=== PATIENT | male | born 1985 | race Caucasian/White ===

== ENCOUNTER 2017-12-03 15:08 | Inpatient (IN) | payer OTHER, MEDICAID ==
[~2017-12-03] VITALS: Ht 170.2 cm; Wt 82.6 kg
[2017-12-03 15:30] VITALS: BP 118/72; PULSE 82; RESP 16; TEMP 98
--- NOTE | 2017-12-03 16:51 | PD ---
HPI Chief Complaint: Psychiatric Symptoms Time Seen by Provider: 16:12 Travel History International Travel<30 days: No Contact w/Intl Traveler<30days: No History of Present Illness HPI 32-year-old male brought in under the Castillo act with history of PTSD, after threatening to kill himself with a loaded gun that was in his home. His called the police came, and the patient gave up his gun and himself voluntarily under the Castillo act for suicidal ideation. Patient admits to recent binge drinking over the past few days. He denies any acute medical problems currently. He has no known drug allergies. [facility] Social History Alcohol Use: Yes Tobacco Use: Yes Substance Use: No Allergies-Medications (Allergen,Severity, Reaction): Coded Allergies: No Known Allergies (Unverified , 12/03/17) Reported Meds & Prescriptions Reported Meds & Active Scripts Active No Active Prescriptions or Reported Medications Review of Systems Except as stated in HPI: all other systems reviewed are Neg General / Constitutional: No: Fever Eyes: No: Visual changes HENT: No: Headaches Cardiovascular: No: Chest Pain or Discomfort Respiratory: No: Shortness of Breath Gastrointestinal: No: Abdominal Pain Genitourinary: No: Dysuria Musculoskeletal: No: Pain Skin: No Rash Neurologic: No: Weakness Psychiatric: Positive: Suicidal Ideations, No: Depression Endocrine: No: Polydipsia Hematologic/Lymphatic: No: Easy Bruising Physical Exam Narrative GENERAL: Patient appears in no obvious distress per SKIN: Warm and dry. Normal color. Normal turgor. No obvious signs of trauma HEAD: Atraumatic. Normocephalic. Nontender. EYES: Pupils equal and round. No scleral icterus. No injection or drainage. ENT: No nasal bleeding or discharge. Mucous membranes pink and moist. Pharynx is clear. Airways patent. NECK: Trachea midline. Supple and nontender. CARDIOVASCULAR: Regular rate and rhythm. RESPIRATORY: No accessory muscle use. Clear to auscultation. Breath sounds equal bilaterally. GASTROINTESTINAL: Abdomen soft, non-tender, nondistended. Hepatic and splenic margins not palpable. MUSCULOSKELETAL: Extremities without clubbing, cyanosis, or edema. No obvious deformities. NEUROLOGICAL: Awake and alert. No obvious cranial nerve deficits. Motor grossly within normal limits. Five out of 5 muscle strength in the arms and legs. Normal speech. PSYCHIATRIC: Appropriate mood and affect; insight and judgment normal. Data Data Last Documented VS Vital Signs Date Time Temp Pulse Resp B/P (MAP) Pulse Ox O2 Delivery O2 Flow Rate FiO2 12/03/17 15:30 98.0 82 16 118/72 (87) Orders Orders Complete Blood Count With Diff (12/03/17 16:12) Comprehensive Metabolic Panel (12/03/17 16:12) Thyroid Stimulating Hormone (12/03/17 16:12) Psych Screen (12/03/17 16:12) Drug Screen, Random Urine (12/03/17 16:12) Diet Regular Basic (12/03/17 Dinner) Labs Laboratory Tests Test 12/03/17 17:00 White Blood Count 8.0 TH/MM3 Red Blood Count 4.95 MIL/MM3 Hemoglobin 15.0 GM/DL Hematocrit 44.1 % Mean Corpuscular Volume 89.2 FL Mean Corpuscular Hemoglobin 30.4 PG Mean Corpuscular Hemoglobin Concent 34.1 % Red Cell Distribution Width 12.8 % Platelet Count 262 TH/MM3 Mean Platelet Volume 8.3 FL Neutrophils (%) (Auto) 65.0 % Lymphocytes (%) (Auto) 26.9 % Monocytes (%) (Auto) 6.5 % Eosinophils (%) (Auto) 1.0 % Basophils (%) (Auto) 0.6 % Neutrophils # (Auto) 5.2 TH/MM3 Lymphocytes # (Auto) 2.2 TH/MM3 Monocytes # (Auto) 0.5 TH/MM3 Eosinophils # (Auto) 0.1 TH/MM3 Basophils # (Auto) 0.0 TH/MM3 CBC Comment DIFF FINAL Differential Comment Blood Urea Nitrogen 11 MG/DL Creatinine 1.12 MG/DL Random Glucose 79 MG/DL Total Protein 7.8 GM/DL Albumin 4.5 GM/DL Calcium Level 9.3 MG/DL Alkaline Phosphatase 93 U/L Aspartate Amino Transf (AST/SGOT) 18 U/L Alanine Aminotransferase (ALT/SGPT) 32 U/L Total Bilirubin 0.4 MG/DL Sodium Level 142 MEQ/L Potassium Level 3.6 MEQ/L Chloride Level 106 MEQ/L Carbon Dioxide Level 25.7 MEQ/L Anion Gap 10 MEQ/L Estimat Glomerular Filtration Rate 76 ML/MIN Thyroid Stimulating Hormone 3rd Gen 1.570 uIU/ML Urine Opiates Screen NEG Urine Barbiturates Screen NEG Urine Amphetamines Screen NEG Urine Benzodiazepines Screen NEG Urine Cocaine Screen NEG Urine Cannabinoids Screen NEG MDM Medical Decision Making Medical Screen Exam Complete: Yes Emergency Medical Condition: Yes Differential Diagnosis Castillo act. Suicidal ideation. History of PTSD Narrative Course Patient appears medically stable at time of exam. Psychiatric labs ordered per protocol. Psych screen is ordered. Patient is medically clear for psychiatric evaluation. Scripts No Active Prescriptions or Reported Meds Condition: Stable Jeremy Rubin Dec 03, 2017 16:51
[2017-12-03 17:54] LABS: AUTOMATED NEUTROPHIL # 5.2 TH/MM3 (1.8-7.7); BASOPHIL % 0.6 % (0.0-2.0); EOSINOPHIL # 0.1 TH/MM3 (0-0.4); HEMATOCRIT 44.1 % (39.0-51.0); LYMPH % 26.9 % (9.0-44.0); LYMPHOCYTE # 2.2 TH/MM3 (1.0-4.8); MEAN CELL VOLUME 89.2 FL (80.0-100.0); MEAN CORPUSCULAR HEMOGLOBIN 30.4 PG (27.0-34.0); MEAN CORPUSCULAR HGB CONC 34.1 % (32.0-36.0); MEAN PLATELET VOLUME 8.3 FL (7.0-11.0); MONO % 6.5 % (0.0-8.0); MONOCYTE # 0.5 TH/MM3 (0-0.9); PLATELET COUNT 262 TH/MM3 (150-450); RED BLOOD COUNT 4.95 MIL/MM3 (4.50-5.90); RED CELL DISTRIBUTION WIDTH 12.8 % (11.6-17.2)
[2017-12-03 18:16] LABS: ALBUMIN 4.5 GM/DL (3.4-5.0); AST (GOT) 18 U/L (15-37); BICARBONATE 25.7 MEQ/L (21.0-32.0); BLOOD UREA NITROGEN 11 MG/DL (7-18); CALCIUM 9.3 MG/DL (8.5-10.1); CHLORIDE 106 MEQ/L (98-107); CREATININE 1.12 MG/DL (0.60-1.30); GLOMERULAR FILTRATION RATE 76 ML/MIN (>89); GLUCOSE,RANDOM 79 MG/DL (74-106); SODIUM (NA) 142 MEQ/L (136-145)
[2017-12-03 18:29] LABS: ALKALINE PHOSPHATASE 93 U/L (45-117); ALT (GPT) 32 U/L (12-78); TOTAL BILIRUBIN ADULT 0.4 MG/DL (0.2-1.0); TOTAL PROTEIN 7.8 GM/DL (6.4-8.2)
[2017-12-03 19:06] VITALS: BP 130/61; PULSE 68; RESP 18; O2SAT 100
[2017-12-03 19:07] VITALS: BP 140/63; PULSE 86; RESP 18; O2SAT 98
[2017-12-04 02:31] VITALS: BP 132/66; PULSE 75; RESP 17; O2SAT 99
[2017-12-04 10:00] VITALS: BP 128/72; PULSE 64; RESP 20
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
[2017-12-04] MEDS ORDERED: ACETAMINOPHEN 325 MG TAB PO PRN (14:00)
[2017-12-04] MEDS ORDERED: ALUMINUM/MAGNESIUM/SIMETH 30 ML CUP PO PRN (14:00)
[2017-12-04] MEDS ORDERED: MAGNESIUM HYDROXIDE SUSP 30 ML CUP PO PRN (14:00)
[2017-12-04 14:31] VITALS: BP 130/76; PULSE 76; RESP 16; TEMP 98.2; O2SAT 76
--- NOTE | 2017-12-04 14:54 | PD ---
History of Present Illness Chief Complaint: Psychiatric Symptoms Time Seen by Provider: 13:15 Travel History International Travel<30 Days: No Contact w/Intl Traveler<30days: No Known affected area: No Legal Status Legal Status: Castillo Act Castillo Act Signed By: Carla Torrez History of Present Illness: History of Present Illness HPI 32-year-old male brought in under the Castillo act with history of PTSD, after threatening to kill himself with a loaded gun that was in his home. His called the police came, and the patient gave up his gun and himself voluntarily under the Castillo act for suicidal ideation. Patient admits to recent binge drinking over the past few days. He denies any acute medical problems currently. He has no known drug allergies. Telephone call to his , Sid with his verbal authorization to obtain collateral at [phone]. [facility] Past Medical History Diminished Hearing: No Medical other: [facility] ([facility]) Immunizations Current: Yes Past Surgical History Other Surgery: Yes (LEFT KNEE SURGERY) Psychiatric History Psychiatric History Hx Psychiatric Treatment: DENIES History of Inpatient Treatment: No Social History Hx Alcohol Use: Yes Hx Tobacco Use: Yes Hx Substance Use: No Substance Use Type: Alcohol Other Substances Used: DRINKS SOCIALLY Hx of Substance Use Treatment: No Allergies-Medications (Allergen,Severity, Reaction): Coded Allergies: No Known Allergies (Unverified , 12/03/17) Reported Meds & Prescriptions Reported Meds & Active Scripts Active No Active Prescriptions or Reported Medications MDM Orders Orders Complete Blood Count With Diff (12/03/17 16:12) Comprehensive Metabolic Panel (12/03/17 16:12) Thyroid Stimulating Hormone (12/03/17 16:12) Psych Screen (12/03/17 16:12) Drug Screen, Random Urine (12/03/17 16:12) Diet Regular Basic (12/03/17 Dinner) Diet Regular Basic (12/04/17 Breakfast) Diet Regular Basic (12/04/17 Lunch) Results Vital Signs Date Time Temp Pulse Resp B/P (MAP) Pulse Ox O2 Delivery O2 Flow Rate FiO2 12/04/17 10:00 64 20 128/72 (90) Room Air 12/04/17 02:31 75 17 132/66 (88) 99 Room Air 12/03/17 19:07 () 12/03/17 19:06 68 18 130/61 (84) 100 Room Air 12/03/17 15:30 98.0 82 16 118/72 (87) Laboratory Tests Test 12/03/17 17:00 White Blood Count 8.0 Red Blood Count 4.95 Hemoglobin 15.0 Hematocrit 44.1 Mean Corpuscular Volume 89.2 Mean Corpuscular Hemoglobin 30.4 Mean Corpuscular Hemoglobin Concent 34.1 Red Cell Distribution Width 12.8 Platelet Count 262 Mean Platelet Volume 8.3 Neutrophils (%) (Auto) 65.0 Lymphocytes (%) (Auto) 26.9 Monocytes (%) (Auto) 6.5 Eosinophils (%) (Auto) 1.0 Basophils (%) (Auto) 0.6 Neutrophils # (Auto) 5.2 Lymphocytes # (Auto) 2.2 Monocytes # (Auto) 0.5 Eosinophils # (Auto) 0.1 Basophils # (Auto) 0.0 CBC Comment DIFF FINAL Differential Comment Blood Urea Nitrogen 11 Creatinine 1.12 Random Glucose 79 Total Protein 7.8 Albumin 4.5 Calcium Level 9.3 Alkaline Phosphatase 93 Aspartate Amino Transf (AST/SGOT) 18 Alanine Aminotransferase (ALT/SGPT) 32 Total Bilirubin 0.4 Sodium Level 142 Potassium Level 3.6 Chloride Level 106 Carbon Dioxide Level 25.7 Anion Gap 10 Estimat Glomerular Filtration Rate 76 Thyroid Stimulating Hormone 3rd Gen 1.570 Urine Opiates Screen NEG Urine Barbiturates Screen NEG Urine Amphetamines Screen NEG Urine Benzodiazepines Screen NEG Urine Cocaine Screen NEG Urine Cannabinoids Screen NEG Prescriptions No Active Prescriptions or Reported Meds Condition: Stable Tonya Burrows Hugo GUZMAN Dec 04, 2017 14:54
[2017-12-04 18:21] VITALS: BP 127/75; PULSE 71; RESP 18; TEMP 98.4; O2SAT 98
[2017-12-05 05:46] VITALS: BP 112/73; PULSE 71; RESP 18; TEMP 97.6; O2SAT 98
[2017-12-05] MEDS: NICOTINE 21 MG/24 HR PATCH T-DERMAL SCH (09:00)
[2017-12-05 11:41] LABS: BICARBONATE 26.3 MEQ/L (21.0-32.0); BLOOD UREA NITROGEN 13 MG/DL (7-18); CALCIUM 9.2 MG/DL (8.5-10.1); CHLORIDE 107 MEQ/L (98-107); GLOMERULAR FILTRATION RATE 87 ML/MIN (>89); GLUCOSE,RANDOM 84 MG/DL (74-106); SODIUM (NA) 141 MEQ/L (136-145)
[2017-12-05 11:43] LABS: CHOLESTEROL 195 MG/DL (120-200); TRIGLYCERIDES 220 MG/DL (42-150)
[2017-12-05 11:44] LABS: CHOLESTEROL/ HDL RATIO 7.86 RATIO; HDL CHOLESTEROL 24.8 MG/DL (40.0-60.0); LDL CHOLESTEROL 126 MG/DL (0-99)
[2017-12-05] MEDS ORDERED: hydrOXYzine HCL 50 MG TAB PO PRN (12:15)
--- NOTE | 2017-12-05 12:36 | HHI.HP ---
Provisional Diagnosis Admission Date Dec 04, 2017 at 14:02 [place] I. posttraumatic stress disorder f 43.10 Certification of Person's Competence To Provide Express and Informed Consent I have personally examined Malcolm Zayas , a person being served at [facility] [[email or web address]] on, Dec 05, 2017 12:19. Express and informed consent means consent voluntarily given in writing, by a competent person, after sufficient explanation and disclosure of the subject matter involved to enable the person to make a knowing and willful decision without any element of force, fraud, deceit, duress, or other form of constraint or coercion. This person is 18 years of age or older, is not now known to be incompetent to consent to treatment with a guardian advocate, and does not have a health care surrogate or proxy currently making medical treatment decisions. I have found this person to be one of the following: [] Competent to provide express and informed consent, as defined above, for voluntary admission to this facility and is competent to provide express and informed consent for treatment. He/she has the consistent capacity to make well reasoned, willful, and knowing decisions concerning his or her medical or mental health treatment. The person fully and consistently understands the purpose of the admission for examination/placement and is fully capable of personally exercising all rights assured under [place] [] Incompetent to provide express and informed consent to voluntary admission, and this is incompetent to provide express and informed consent to treatment. The person must be transferred to involuntary status and a petition for a guardian advocate filed with the Circuit Court. [xxx] Refusing to provide express and informed consent to voluntary admission but is competent to provide express and informed consent for treatment. The person must be discharged or transferred to involuntary status. Form shall be completed within 24 hours of a person's arrival at the receiving facility and filed in the clinical record of each person: 1. Admitted on a voluntary basis 2. Permitted to provide express and informed consent to his/her own treatment 3. Allowed to transfer from involuntary to voluntary status 4. Prior to permitting a person to consent to his or her own treatment after having been previously found incompetent to consent to treatment. History of Present Illness Capacity: Lacks Capacity (patient lacks capacity to sign for admission, patient has capacity to sign for medications) Psych Chief Complaint: PTSD with suicidal ideation and plan to shoot himself HPI is a 32-year-old white male comes here under [place] act by the [place] [employer] dated 12/03/17 at 3 PM the document reviewed and agreed with it stated subject had a loaded firearm and told his that he was thinking of harming himself subject had been drinking last few days subject is a and suffers from PTSD subject as harm himself in the past subject agreed to go seek assistance cooperatively done taken for safekeeping at [facility] patient seen screened in the ED urine toxicology negative it appears that no one alcohol level drawn. At the present time patient sitting quietly in his room counselor Amee present throughout session. Patient is alert oriented stockily built white male, both arm is heavily tattooed. 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 The acknowledges dreams nightmares flashbacks, but only a few eversion behaviors. Acknowledges increased depression over the past few weeks. He states his sleep is been somewhat disruptive. There is a.m. anergy, some decreased energy, his appetite is fair, he denies any voices with this. He denies any drug use but acknowledges some increased alcohol use but denies alcohol being any Of a persistent problem with him. He notices a decrease in his attention concentration, there is a decrease in his coping skills a marked increased irritability and anger. He has had at least one to 2 episodes of depression. There is documentation that patient called his on the phone told him not to come home not to bring her children home. Patient denies any prior psychiatric contact psychotropic medications or psychiatric hospitalization. He denies any physical or sexual abuse. Denies any mental health issues in his family of origin denies drug abuse or alcohol use family of origin. Patient states he is he has been for over 10 years has 4 children 12 years of age down to 2 years of age. He says he gets along well with his kids, but he has more recently been getting into frequent fairly intense arguments and fights with his . Attempted to call his ,may, at [phone] on a manipulative messages. We did discuss treatments. Patient is somewhat irritable related to his income loss will not going to work. However he realizes he needs to be on some medication. Will start patient on Zoloft 25 mg in the morning. Because of the PTSD and bad dreams will also place him on Zyprexa 10 mg at bedtime. Of interest patient stated that perhaps he would drive up to his parents home in [place] may be previous children with him, did acknowledge for did this he would just quit his job. He does meet Castillo criteria at this time thus I will do first opinion request second opinion by Carlene garcia to sign for his medication Review of Systems Constitutional: DENIES: Diaphoretic episodes, Fatigue, Fever, Weight gain, Weight loss, Chills, Dizziness, Change in appetite, Night Sweats Ears, nose, mouth, throat: DENIES: Tinnitus, Hearing loss, Vertigo, Nasal discharge, Oral lesions, Throat pain, Hoarseness, Ear Pain, Running Nose, Epistaxis, Sinus Pain, Toothache, Odynophagia Respiratory: DENIES: Apneas, Cough, Snoring, Wheezing, Hemoptysis, Sputum production, Shortness of breath Cardiovascular: DENIES: Chest pain, Palpitations, Syncope, Dyspnea on Exertion , PND, Lower Extremity Edema, Orthopnea, Claudication Gastrointestinal: DENIES: Abdominal pain, Black stools, Bloody stools, Constipation, Diarrhea, Nausea, Vomiting, Difficulty Swallowing, Anorexia Genitourinary: DENIES: Sexual dysfunction, Urinary frequency, Urinary incontinence, Urgency, Hematuria, Dysuria, Nocturia, Penile Discharge, Testicular Pain, Testicular Swelling Musculoskeletal: DENIES: Joint pain, Muscle aches, Stiffness, Joint Swelling, Back pain, Neck pain Integumentary: DENIES: Abnormal pigmentation, Nail changes, Pruritus, Rash Hematologic/lymphatic: DENIES: Bruising, Lymphadenopathy Immunologic/allergic: DENIES: Eczema, Urticaria Neurologic: DENIES: Abnormal gait, Headache, Localized weakness, Paresthesias, Seizures, Speech Problems, Tremor, Poor Balance Psychiatric: COMPLAINS OF: Anxiety, Depression, Hallucinations (flashbacks and nightmares), Agitation, Suicidal Ideation (patient walking around the home with a loaded 45 caliber pistol) Past Psych History Psychological trauma history Patient has seen combat [place] with the [employer] Violence risk - others (6 mos) Low Violence risk - self (6 mos) High Substance Abuse History Drugs/Alcohol past 12 months Patient said increase alcohol abuse past month or so Past Family Social History Coded Allergies: No Known Allergies (Unverified , 12/03/17) No Active Prescriptions or Reported Meds Current Medications Medications (Trade) Dose Ordered Sig/Michelle Route Start Time Stop Time Status Last Admin (Tylenol) 650 mg Q4H PRN PO 12/04/17 14:00 (Milk Of Magnesia Liq) 30 ml DAILY PRN PO 12/04/17 14:00 (Mag-Al Plus Susp Liq) 30 ml Q6H PRN PO 12/04/17 14:00 (Habitrol 21 Mg Patch.24 Hr) 1 patch DAILY T-DERMAL 12/05/17 09:00 Miscellaneous Information 1 HS T-DERMAL 12/05/17 21:00 Family Psych History Patient denies mental illness or addictions and family of origin Social History Patient lives with his of 12 years they have 4 children 12 years old 2 years Patient's Strengths (min. 2) Intervertebral labile access healthcare Physical Exam Patient medically cleared in ED exam reviewed and agreed with at the present time patient sitting quietly in his room is in no acute distress, is in no respiratory distress. No complaints of abdominal pain. Patient moving all 4 extremities without difficulty, no abnormal motor movements noted Vital Signs Vital Signs Date Time Temp Pulse Resp B/P (MAP) Pulse Ox O2 Delivery O2 Flow Rate FiO2 12/05/17 05:46 97.6 71 18 112/73 (86) 98 12/04/17 10:00 Room Air Lab Results Test 12/05/17 10:05 Blood Urea Nitrogen 13 MG/DL Creatinine 1.00 MG/DL Random Glucose 84 MG/DL Calcium Level 9.2 MG/DL Sodium Level 141 MEQ/L Potassium Level 4.1 MEQ/L Chloride Level 107 MEQ/L Carbon Dioxide Level 26.3 MEQ/L Anion Gap 8 MEQ/L Estimat Glomerular Filtration Rate 87 ML/MIN Triglycerides Level 220 MG/DL Cholesterol Level 195 MG/DL LDL Cholesterol 126 MG/DL HDL Cholesterol 24.8 MG/DL Cholesterol/HDL Ratio 7.86 RATIO Mental Status Examination Appearance: Appropriate (in hospital paper gowns) Consciousness: Alert Orientation: x4 Motor Activity: Normal gait Speech: Unremarkable Language: Adequate Fund of Knowledge: Adequate Attention and Concentration: Adequate Memory: Unremarkable Mood: Angry, Sad, Irritable Affect: Other (increase range and intensity) Thought Process & Associations: Intact, Logical, Goal directed Thought Content: Appropriate Hallucination Type: None Delusion Type: None Suicidal Ideation: No (denies today) Suicidal Plan: No Suicidal Intention: No Homicidal Ideation: No Homicidal Plan: No Homicidal Intention: No Insight: Poor Judgment: Impulsive Assessment & Plan Problem List: (1) Post traumatic stress disorder (PTSD) ICD Codes: F43.10 - Post-traumatic stress disorder, unspecified Status: Acute Assessment & Plan Estimated LOS 5-7: days patient remains depressed irritable angry and volatile. Patient does meet Castillo criteria I will do first opinion will ask for second opinion. I feel he has capacity to sign for medications. We'll continue to attempt to reach patient's for further information. We'll start patient on Zoloft 25 mg daily Zyprexa 10 mg at at bedtime. Hopeless be fairly short stay and return patient to [place] follow-up care through the [place] clinic here in [facility] Discharge Planning To be determined probable return home with family follow-up [place] clinic Request HC Surrog/Guard Advoc?: No Miguel Singh MD Dec 05, 2017 12:36
--- NOTE | 2017-12-05 13:08 | EKG ---
Date Performed: 12/05/2017 Time Performed: 12:01:34 PTAGE: 32 years EKG: Sinus rhythm BORDERLINE RIGHT AXIS DEVIATION BORDERLINE ECG NO PREVIOUS TRACING DOCTOR: Maximo Gore Interpretating Date/Time 12/05/2017 13:07:14
[2017-12-05] MEDS: SERTRALINE HCL 50 MG TAB PO SCH (14:00)
[2017-12-05 17:21] VITALS: BP 114/60; PULSE 88; RESP 18; TEMP 98.4; O2SAT 97
[2017-12-05 18:13] LABS: HEMOGLOBIN A1C 5.2 % (4.3-6.0)
[2017-12-05] MEDS ORDERED: OLANZapine 10 MG TAB PO SCH (21:00)
[2017-12-05] MEDS ORDERED: REMOVE OLD NICODERM (NICOTINE) PATCH T-DERMAL SCH (21:00)
[2017-12-06 05:47] VITALS: BP 113/69; PULSE 80; RESP 18; TEMP 97.4; O2SAT 98
[2017-12-06] MEDS: SERTRALINE HCL 50 MG TAB PO SCH (08:52)
[2017-12-06] MEDS: NICOTINE 21 MG/24 HR PATCH T-DERMAL SCH (08:52)
[2017-12-06] MEDS ORDERED: OLAN10TA PO (16:07)
[2017-12-06] MEDS ORDERED: ZOLO25TA PO (16:07)
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
[2017-12-06 17:40] VITALS: BP 140/86; PULSE 91; RESP 18; TEMP 98.4; O2SAT 100
== END 2017-12-06 18:00 | disposition home or self-care (01) | DRG 882 ==
LOC: NEPJ 15:08 → NEDA 12-04 14:02 → H260 12-04 14:25
PROVIDERS: ADMIT Psychiatry & Neurology Psychiatry; ATTEND Psychiatry & Neurology Psychiatry
DX: F43.10 Post-traumatic stress disorder, unspecified (principal); R45.851 Suicidal ideations; Z72.0 Tobacco use
CPT/HCPCS: 80048; 80053; 80061; 80307; 83036; 84443; 85025; 93005; 99285